=== PATIENT | male | born 1955 | race Caucasian/White ===

== ENCOUNTER 2016-09-03 10:23 | Observation (INO) | payer BC ==
[2016-08-30 07:51] LABS: HEMATOCRIT 39.4 % (40.0-51.0); HEMOGLOBIN 13.2 g/dL (13.6-17.8)
[2016-08-30 08:26] LABS: BUN (BLOOD UREA NITROGEN) 24 MG/DL (6-23); CALCIUM, SERUM 9.1 MG/DL (8.5-10.4); CHLORIDE, SERUM 107 MMOL/L (96-112); CO2 (CARBON DIOXIDE) 25 MMOL/L (24-34); CREATININE 1.12 MG/DL (0.70-1.30); GFR AFRICAN AMERICAN 83 ML/MIN (>=60); GFR NON AFRICAN AMERICAN 72 ML/MIN (>=60); GLUCOSE, SERUM 94 MG/DL (60-99); POTASSIUM, SERUM 4.3 MMOL/L (3.5-5.3); SODIUM, SERUM 141 MMOL/L (135-148)
[2016-08-30 08:38] LABS: ASCORBIC ACID (UR NOT ORDER) NEG (NEG); BILIRUBIN, URINE NEGATIVE (NEG); KETONE, URINE NEGATIVE (NEG); LEUKOCYTE ESTERASE(NOT OR NEG (NEG); WBC (NOT ORDERED) (RFLEX) 1 (0-5)
--- NOTE | ~2016-09-03 | OP ---
Record Of Operation [facility] [address] [place]. [address] NAME: ASTER SHRESTHA : 59 STATUS : ADM IN PAT#: [id number] AGE: 61 ADM/REG DATE : 09/03/16 MR#: [id number] REPORT SERV DATE: 09/03/16 DICTATED BY: ORLANDO NAIDU JR. DATE: 09/03/16 REPORT STATUS : Draft TRANSCRIBED BY: MODL DATE: 09/03/16 DATE OF PROCEDURE: 09/03/2016 SURGEON: Orlando Naidu M.D. PREOPERATIVE DIAGNOSIS: Benign prostatic hypertrophy. POSTOPERATIVE DIAGNOSIS: Benign prostatic hypertrophy. PROCEDURE PERFORMED: Cystoscopy, transurethral resection of the prostate. COMPLICATIONS: None. CONSULTATIONS: None. ANESTHESIA: General with a laryngeal mask airway. SPECIMENS: Prostate chips. DRAINS: A 24-Peruvian 3-way Keyes catheter. ESTIMATED BLOOD LOSS: None. INDICATION: Mr. Shrestha is a 61-year-old gentleman with a history of both impotence and benign prostate hypertrophy. He has had difficulties with increasing frequency, urgency, and nocturia due to BPH. He has failed medical therapy and comes today for surgical therapy after cystoscopy in the office revealed a large ball valving median lobe. PROCEDURE IN DETAIL: After the patient was identified and proper informed consent was obtained, he was taken to the operating room. General anesthesia was performed without complication using a laryngeal mask airway. He was then prepped and draped in a normal sterile fashion in the lithotomy position. Cystoscopic examination again revealed an obstructive pattern to his prostate growth, mainly in the median lobe area. Prostate length approximately 3 cm in length, with normal bladder mucosa except for some mild trabeculation. Both ureteral orifices were somewhat behind the median lobe, but visible. I then removed the cystoscope replacing it with a 26-Peruvian resectoscope. I then resected the median lobe first from bladder neck to verumontanum down to surgical capsule and bladder neck fibers. I then resected the lateral lobes as well. Although, there was a lot of lateral lobe tissue to be resected. This tissue was sent for pathologic specimen and irrigated from the bladder using an [employer] evacuator. I used the resectoscope to cauterize the mucosal edges and other areas of the prostatic fossa that were bleeding. Once the bleeding had been stopped, I then placed a 24-Peruvian 3-way Keyes catheter to light traction and continuous bladder irrigation. The patient was awakened in the operating room and transferred to the postanesthesia care unit in stable condition. Record Of Operation [facility] [address] [place]. [address] NAME: ASTER SHRESTHA : 59 STATUS : ADM IN PAT#: [id number] AGE: 61 ADM/REG DATE : 09/03/16 MR#: [id number] REPORT SERV DATE: 09/03/16 DICTATED BY: ORLANDO NAIDU JR. DATE: 09/03/16 REPORT STATUS : Draft TRANSCRIBED BY: MODRodrick DATE: 09/03/16 DION/MARGY Orlando Naidu Jr., M.D. / [id number] CC: Orlando Naidu Jr., M.D.
[~2016-09-03 10:23] MED LIST: *UNABLE1; ASAB PO; BLOOD PRESSURE MED; CARASPUDL PO; CEFT5 PO; CHOLESTEROL MED; CHOLESTEROL RX PO; CIMZIA; CIMZIA SC; FLOMAX4 PO; FLONASE NAS; FOLIC PO; LEVATOL20 MG PO; METHOTREXATE 25 MG/ML; METHOTREXATE25 MG/ML IM; NORV5 PO; P5 PO; PRAVAC PO; PRIN20 PO; VISKEN10 PO; WELLSR150 PO; WELLXL150 PO
[2016-09-03 15:06] LABS: HEMATOCRIT 36.8 % (40.0-51.0); HEMOGLOBIN 12.2 g/dL (13.6-17.8)
[2016-09-04 05:00] LABS: HEMATOCRIT 36.2 % (40.0-51.0); HEMOGLOBIN 12.2 g/dL (13.6-17.8)
[2016-09-04] MEDS ORDERED: PERCOCET 7.5/321 TAB PO (13:34)
[2016-09-04] MEDS ORDERED: DSS PO (13:35)
== END 2016-09-04 15:35 | disposition home or self-care (01) ==
LOC: SDC/OF 10:23 → PACU 14:01 → 4SO 16:21
PROVIDERS: Urology
PROC: 0VT08ZZ Resection of Prostate, Via Natural or Artificial Opening Endoscopic (ICD-10-PCS; principal; 2016-09-03 12:45)
DX: N40.1 Benign prostatic hyperplasia with lower urinary tract symptoms (principal); R33.8 Other retention of urine; M06.9 Rheumatoid arthritis, unspecified; I10 Essential (primary) hypertension; K21.9 Gastro-esophageal reflux disease without esophagitis; J44.9 Chronic obstructive pulmonary disease, unspecified; F32.9 Major depressive disorder, single episode, unspecified; J43.9 Emphysema, unspecified; G47.33 Obstructive sleep apnea (adult) (pediatric); Z79.2 Long term (current) use of antibiotics; Z79.899 Other long term (current) drug therapy; Z82.49 Family history of ischemic heart disease and other diseases of the circulatory system; Z82.3 Family history of stroke; Z87.891 Personal history of nicotine dependence; Z87.442 Personal history of urinary calculi; Z98.890 Other specified postprocedural states
CPT/HCPCS: 36415; 80048; 81001; 84295; 85014; 85018; 86850; 86900; 86901; 88305; 93005; 96372; A9270-GY; G0378; J1170; J1720; J2250; J2405; J2710; J3010